=== PATIENT | male | born 1950 | race Caucasian/White ===

== ENCOUNTER 2024-08-15 11:19 | Outpatient (CLI) | payer BC, SELFPAY ==
--- NOTE | ~2024-08-15 | CT_ITS ---
EXAMINATION: CT lung screening DATE: 08/15/2024 11:39 INDICATION: Current smoker TECHNIQUE: Computed tomography (CT) of the chest was performed without intravenous contrast. Addition al 3D reconstructions utilizing coronal maximum intensity projection (MIP) were performed. Automated exposure control and iterative reconstruction technique were employed. The dose-length product was 13 1.83 mGy-cm. COMPARISON: None FINDINGS: Emphysema moderate severity in the posterior right upper lobe and otherwise mild. Unchanged 2 mm nodu les in the left upper lobe and left lower lobe. No new or enlarging pulmonary nodules identified. No pneumonia, pulmonary edema or pleural effusion. Heart size is normal. Atherosclerotic coronary artery calcification. No pericardial effusion. Thoracic aorta is normal in caliber. No pathologically enlar ged thoracic lymphadenopathy. Visualized upper abdomen is unremarkable. There are bridging osteophyte s at multiple levels throughout the thoracic and lower cervical spine consistent with diffuse idiopat hic skeletal hyperostosis (DISH). IMPRESSION: 1. Lung-RADS category 2: Benign appearance or behavior. Continue annual screening with noncontrast lo w-dose chest CT in 12 months. Reviewed, dictated and finalized at location B. IMPRESSION: 1. Lung-RADS category 2: Benign appearance or behavior. Continue annual screeni ng with noncontrast low-dose chest CT in 12 months.
== END 2024-08-15 11:20 | disposition home or self-care (01) ==
LOC: MICIMG 11:20
PROVIDERS: PCP Physician Assistant; Visit Provider Physician Assistant
DX: Z12.2 Encounter for screening for malignant neoplasm of respiratory organs (principal); Z87.891 Personal history of nicotine dependence
CPT/HCPCS: 71271

== ENCOUNTER 2024-09-14 17:10 | Emergency (ER) | payer BC, SELFPAY ==
[2024-09-14] VITALS (7 sets, daily range): BP systolic 176–203; BP diastolic 95–107; PULSE 70–72; RESP 24–40; TEMP 36.5–37.1; O2SAT 94–95
--- NOTE | 2024-09-14 17:30 | ECG_ITS ---
Test Date: 2024-09-14 17:33:39 Measurements Intervals [place] Rate: 73 P: 107 [place]: 139 QRS: 69 QRSD: 86 T: 24 QT: 393 QTc: 435 Interpretive Statements SINUS RHYTHM NONSPECIFIC T-WAVE ABNORMALITY Abnormal ECG Electronically Signed On 09-16-2024 10:35:32 CDT by Reggie Musa M.D.
[2024-09-14] MEDS: IPRATROPIUM 0.5 MG/ALBUTEROL SULFATE 2.5 MG AMPUL.NEB 3 ML INHALATION (17:35)
--- NOTE | 2024-09-14 17:55 | ED.SOB ---
HPI - SOB/Dyspnea General Chief Complaint: Dizziness Stated Complaint: SOB,tightness in center/left side chest/back Time Seen by Provider: 09/14/24 17:30 Source: patient Mode of arrival: ambulatory Limitations: no limitations History of Present Illness HPI Narrative: 73-year-old male with no significant medical history presents today with complaint of dyspnea that started this morning. Patient went up stairs this evening and became dizzy. Dyspnea significantly worse. Patient arrived with abdominal retractions. Patient's abdomen appears distended but patient states this is normal. Denies chest pain. Patient reports 3 days ago he injured his back while picking up a large tarp. Had upper back pain for several days that has resolved but now feels and upper back tightness. patient feels that breathing is restricted and cannot take a deep breath but when he does try to take a deep breath he feels a sharp pain in his back. Patient's blood pressure is elevated today which she states is not normal for him. He smokes 1 pack a cigarettes a day and drinks at least 3 beers a day. All systems reviewed and negative except as noted above. Related Data Home Medications Medication Instructions Recorded Confirmed No Home Medications 09/14/24 09/14/24 Allergies Allergy/AdvReac Type Severity Reaction Status Date / Time No Known Allergies Allergy Verified 09/14/24 17:47 Review of Systems Review of Systems: CONSTITUTIONAL: Denies fever, chills, or sweats. EYES: Denies visual changes, redness, or discharge. ENT: Denies rhinorrhea, congestion, sore throat, or otalgia. CARDIOVASCULAR: Denies chest pain, palpitations, or edema. RESPIRATORY: Denies cough . Reports dyspnea. GASTROINTESTINAL: Denies abdominal pain, nausea, vomiting, or diarrhea. GENITOURINARY: Denies dysuria or hematuria. SKIN: Denies rash or itching. MUSCULOSKELETAL: reports upper back pain. Denies joint pain, or myalgia. NEUROLOGIC: Denies headache, numbness, or weakness. PSYCHIATRIC: Denies anxiety or depression. All other systems reviewed are negative, except as documented in HPI. PMFSH Comments At time of signature, agree with nursing past medical, surgical, social and family history. There is no relevant family history pertinent to the presenting complaint. Exam Narrative: GENERAL: This is a well-nourished, well-developed patient, Patient pale and dusky, mild respiratory distress HEAD: normocephalic, atraumatic. EYES: PERRL. Sclera clear/white. Vision is grossly intact. EARS: External ears normal, auditory canals clear and without drainage, TMs normal without perforation. Hearing grossly intact. NOSE: External nose normal with no obvious nasal discharge, nares without redness, no rhinorrhea. THROAT: Mucous membranes moist, posterior pharynx clear. NECK: Neck supple, non-tender without lymphadenopathy, masses or thyromegaly. CARDIOVASCULAR: Regular rate and rhythm without murmurs, gallops, or rubs. RESPIRATORY: decreased throughout all lung padron. abdominal retractions. Increased respiratory rate. No wheezes, rales, or rhonchi. GASTROINTESTINAL: Abdomen soft, non-tender, nondistended. Bowel sounds are active. No hepato-splenomegaly, or palpable masses. No guarding. SKIN: warm, Dry, intact with no suspicious lesions or rash, good texture and turgor. NEURO: awake, alert, and oriented to person, place and time. There were no obvious focal neurologic abnormalities. EXTREMITIES: No joint tenderness, effusion, or edema noted. Course Course Level of Care: Express Care Visit Vital Signs Vital signs: Vital Signs Temperature 37.1 C 09/14/24 17:44 Pulse Rate 70 09/14/24 17:44 Respiratory Rate 24 H 09/14/24 17:44 Blood Pressure 176/98 H 09/14/24 17:44 Pulse Oximetry 95 09/14/24 17:44 Oxygen Delivery Room Air 09/14/24 17:44 Temperature 37.1 C 09/14/24 17:44 Pulse Rate 70 09/14/24 17:44 Respiratory Rate 24 H 09/14/24
== END 2024-09-14 18:04 | disposition short-term general hospital (02) ==
PROVIDERS: Emergency Provider Nurse Practitioner Family; PCP Physician Assistant
DX: R06.00 Dyspnea, unspecified (principal); I10 Essential (primary) hypertension
CPT/HCPCS: 93005; 99215; G0463

== ENCOUNTER 2025-02-17 13:02 | Outpatient (CLI) | payer BC, SELFPAY ==
--- NOTE | ~2025-02-17 | US_ITS ---
EXAMINATION: US arterial ankle brachial ind DATE: 02/17/2025 14:24 INDICATION: Localized swelling. Right leg feels warmer. Peripheral vascular disease risk factors of p rior smoking and hypertension. TECHNIQUE: Segmental pressures and plethysmographic and Doppler waveforms of the brachial and lower e xtremity arteries were obtained. COMPARISON: None. FINDINGS: Right and left brachial artery pressures of 165 mm Hg and 156 mm Hg, respectively, are concordant (no rmal difference <= 30 mmHg). The right ankle-brachial index (RYAN) is 1.15 (normal >= 0.9-1.0). The right great toe-brachial index (TBI) is 0.67 (normal >= 0.65). Arterial Doppler waveforms demonstrate normal systolic upstrokes at b oth right posterior tibial and dorsalis pedis arteries. The left RYAN is 1.15. The left TBI is 0.44. Arterial Doppler waveforms demonstrate normal systolic up strokes at both left posterior tibial and dorsalis pedis arteries. IMPRESSION: 1. Mild arterial occlusive disease to left lower limb with normal left RYAN but mildly decreased left TBI. 2. Normal right RYAN and TBI. Reviewed, dictated and finalized at location B.
--- NOTE | ~2025-02-17 | US_ITS ---
EXAMINATION: US arterial duplex LE DATE: 02/17/2025 14:24 INDICATION: Localized swelling and peripheral vascular disease in the lower limbs. TECHNIQUE: Multiple grayscale and Doppler ultrasound images of the arteries of the bilateral lower li mbs were obtained. COMPARISON: None FINDINGS: On grayscale imaging there is scattered multifocal atherosclerotic plaque narrows the right lower mcdowell b. This appears most prominent in the mid right superficial femoral artery where there is increase in peak systolic velocity from 75 cm/s in the proximal artery to 160 cm/s at the site of the stenosis w hich appears moderate 50-70% severity on grayscale imaging. There is additional stenosis at the right popliteal artery which also appears of moderate severity on grayscale imaging. Spectral Doppler demo nstrates a systolic upstrokes throughout the arteries of the right lower limb with triphasic waveform s at the right external iliac, common femoral, superficial femoral, popliteal, posterior tibial, marilou shruthi and anterior tibial arteries and biphasic waveform at the right profunda femoral artery. IMPRESSION: 1. Scattered atherosclerotic disease in the arteries of the right lower limb with moderate 50-70% erick nosis on grayscale imaging at the mid right superficial femoral artery and right popliteal artery, th e former with associated doubling of peak systolic velocities but with normal brisk systolic upstroke s throughout including in the more distal arteries. Reviewed, dictated and finalized at location B. IMPRESSION: 1. Scattered atherosclerotic disease in the arteries of the right lower limb wi th moderate 50-70% stenosis on grayscale imaging at the mid right superficial f emoral artery and right popliteal artery, the former with associated doubling o f peak systolic velocities but with normal brisk systolic upstrokes throughout including in the more distal arteries.
--- OUTSIDE RECORDS SUMMARY | 2025-02-17 14:55 | XMS_ITS | Clinical Summary ---
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
--- OUTSIDE RECORDS SUMMARY | 2025-02-17 14:55 | XMS_ITS | Encounter Summary ---
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 Historical Provider Final Res ult documented in this encounter Visit Diagnoses Not on filedocumented in this encounter Additional Health Concerns Infection Onset Date Last Indicated Resolved Time COVID: Suspected 09/14/2024 09/14/2024 09/14/2024 7:41 PM CDT documented as of this encounter Care Teams It Security Consulting Director Relationship Specialty Start Date End Date Gloria Salgado PA [address] [place] [id number] PCP - General Physician Manager Image 09/14/24 documented as of this encounter
--- OUTSIDE RECORDS SUMMARY | 2025-02-17 14:55 | XMS_ITS | Encounter Summary ---
Author Organization [facility] Address [address] [place] [address] Phone Care Team Providers Care Oil Field Roustabout Name Role Phone Gloria Salgado Primary Care Provider [phone] Encounter Details Date Type Department Care Team (Late st Contact Info) Description 09/24/2024 Telephone [facility] Surgery [address] Advanced Medicine 8th [place] [address] [place] [address] Simon Issa MD [address] [facility] [address] [place] [address] Social History Tobacco Use Types Packs/Day Years Used Date Smoking Tobacco: Every Day Cigarettes 1 40.4 Started: 09/15/1984 Smokeless Tobacco: Never [facility] [employer] Answer Date Recorded In the past 12 months has [employer], gas, oil, or water [employer] threatened to shut off services in your home? No 09/16/2024 Social Connection and Isolat ion Panel [NHANES] Answer Date Recorded In a typical week, how many times do you talk on the phone with family, friends, or neighbors? More than three times a week 09/16/2024 How often do you get togethe r with friends or relatives? More than three times a week 09/16/2024 How often do you attend chur ch or latter day services? Never 09/16/2024 Do you belong to any clubs o r organizations such as christian groups, unions, fraternal or athletic groups, or school groups? No 09/16/2024 How often do you attend meet ings of the clubs or organizations you belong to? Never 09/16/2024 Are you , , di vorced, , never , or living with a partner? 09/16/2024 Overall Financial Resource Strain (CARDIA) Answe r Date Recorded How hard is it for you to pa y for the very basics like food, housing, medical care, and heating? Not very hard 09/16/2024 Hunger Vital Sign Answer Date Recorded Within the past 12 months, y ou worried that your food would run out before you got the money to buy more. Never true 09/16/20 24 Within the past 12 months, t he food you bought just didn't last and you didn't have money to get more. Never true 09/16/2024 PRAPARE - Transportation Answer Date Re corded In the past 12 months, has l ack of transportation kept you from medical appointments or from getting medications? No 08/28 In the past 12 months, has l ack of transportation kept you from meetings, work, or from getting things needed for daily living? No 09/16/2024 Housing Stability Vital Sign Answer Garrick e Recorded In the last 12 months, was t here a time when you were not able to pay the mortgage or rent on time? No 09/16/2024 In the past 12 months, how m any times have you moved where you were living? 0 09/16/2024 At any time in the past 12 m [facility], were you homeless or living in a chcf (including now)? No 09/16/2024 Personal Safety Answer Date Recorded Have you ever been in or are you currently in a harmful physical or emotional relationship or is someone making you feel afraid or unsafe? 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
--- OUTSIDE RECORDS SUMMARY | 2025-02-17 14:55 | XMS_ITS | Referral Summary ---
Author Organization [facility] Address [address] [place] [address] Care Team Providers Care Equipment Sales Specialist Name Role Phone Gloria Salgado Primary Care Provider [phone] Encounters Date Type Department Care Team Description 02/11/2025 2:38 PM CDT - 02/11/2025 11:59 PM CDT Hospital Encounter [facility] Vascular Lab [address] [place] [address] Right leg swelling Discharge Disposition: Discharge to home or self care 02/11/2025 10:00 AM CDT - 02/11/2025 11:59 PM CDT Hospital Encounter [facility] MOB [address] DIAG [address] [place] [address] Pulmonary emphysema, unspecified emphysema type (HCC) Discharge Disposition: Discharge to home or self care 02/11/2025 11:00 AM CDT Office Visit [address] [address] Gigi Barnes MD Pulmonary emphysema, unspecified emphysema type (HCC) (Primary Dx); Primary hypertension; Right leg swelling; Nicotine dependence, cigarettes, uncomplicated 02/03/[address] [address] Ho Turk CMA from Last 3 Months Allergies No known active allergies Medications budesonide-form oteroL (SYMBICORT) 160-4.5 mcg/actuation inhaler Inhale 2 puffs 2 (two) times a day Rinse mouth with water after use. Do not swallow. 1 each 4 Active albuterol HFA (ProAir HFA) 90 mcg/actuation inhaler Inhale 2 puffs every 4 (four) hours as needed for wheezing or shortness of breath 8.5 g 5 4 11/05/20 25 Active amLODIPine (NORVASC) 5 mg tablet TAKE 1 TABLET(5 MG) BY MOUTH DAILY 90 tablet 5 Active Active Problems Problem Noted Date Diagnosed Date Right leg swelling 02/11/2025 Hyponatremia 09/24/2024 CAP (community acquired pneumonia) 09/16/2024 Emphysema lung 09/16/2024 Smoking greater than 40 pack years 09/16/2024 Pneumothorax on right 09/14/2024 Throat pain 11/05/2021 Overview (09/24/2024): Added automatically from request for surgery [id number] Atherosclerosis of aorta 08/17/2020 Enlarged thyroid 10/28/2019 ED (erectile dysfunction) 09/05/2016 GERD (gastroesophageal reflux disease) 6 HTN (hypertension) 04/20/2016 Hyperglycemia 04/20/2016 Social History Tobacco Use Types Packs/Day Years Used Date Smoking Tobacco: Former Cigarettes 1 40 1 - 09/14/2024 Smokeless Tobacco: Never Tobacco Cessation:Counseling Given: Not Answered [facility] Utilities Answer Date Recorded In the past 12 months has e [employer], oil, or water [employer] threatened to shut off services in your [...] 09/16/2024 How often do you attend chur or mosque services? Never 09/16/2024 Do you belong to any clubs o r organizations such as religious groups, unions, fraternal or athletic groups, or [...] any time in the past 12 m onths, were you homeless or living in a senior living (including now)? No 09/16/2024 Personal Safety Answer Date Recorded Have you ever been in or are you currently in a harmful physical or emotional relationship or is someone making you feel afraid or unsafe? 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 Gender Identity Not on file Sexual Orientation Not on file Last Filed Vital Signs Vital Sign Reading Time Taken Comments Blood Pressure 122/80 02/11/2025 10:34 AM CDT Pulse 76 02/11/2025 10:34 AM CDT Temperature 35.9 C (96.6 F) 02/11/2025 10:34 AM CDT Respiratory Rate 16 02/11/2025 10:34 AM CDT Oxygen Saturation 98% 02/11/2025 10:34 AM CDT Inhaled Oxygen Concentration - - Weight 88.9 kg (196 lb) 02/11/2025 10:34 AM CDT Height 180.3 cm (5' 11 ) 02/11/2025 10:34 AM CDT Body Mass Index 27.34 02/11/2025 10:34 AM CDT Plan of Treatment Not on file Procedures Procedure Name Priority Date/Time Associated Diagnosis Comments US VEIN DUPLEX LOWER EXTREMITY RIGHT LIMITED Schedule JAYA, Read JAYA (Appt Today, Awaiting Results) 02/11/2025 3:25 PM CDT Right leg swelling XR CHEST PA LATERAL 2 VIEWS Schedule Routine, Read Routine (OP Routine) 02/11/2025 10:18 AM CDT Pulmonary emphysema, unspecified emphysema type (HCC) from Last 3 Months Results * US Vein Duplex Lower Extremity Right Limited, Unilateral (02/11/2025 3:25 PM CDT) Anatomical Region Laterality Modality Vascular Right Ultrasound 02/11/2025 2:54 PM CDT Narrative 02/13/2025 9:43 AM CDT Lower Extremity Venous Report Patient Name: GLENN EMANUEL D : 1950 (74y 2m) Gender: M Study Date: 02/11/2025 02:54:19 PM Activated Sludge Operator: Burke Marr Provider: GIGI BARNES Quality: Adequate Ref Provider: GIGI BARNES PROCEDURES: Vascular Report: A non-invasive vascular imaging study of the right lower extremity veins was performed using B-mode ultrasound, color flow, and spectral Doppler. INDICATIONS: Edema, unspecified, Right leg swelling, and M79.89 Other specified soft tissue disorders. COMPARISONS: No prior exams. FINDINGS: Right: Negative for deep and superficial vein thrombosis in the right lower extremity. Provider Notification: Tranz message sent to Gigi Barnes Mac. CONCLUSIONS: 1. There is no evidence of deep vein thrombosis in the right lower extremity. ATTESTATION: I have reviewed and interpreted the pertinent images and measurements of this study. I attest to the conclusions in the final report that is provided above. Electronically Signed By: Willie Cr MD 02/13/2025 9:18:26 AM CDT Procedure Note Willie Cr MD - 02/13/2025 Lower Extremity Venous Report Patient Name: GLENN EMANUELMarisabel : 1950 (74y 2m) Gender: M Study Date: 02/11/2025 02:54:19 PM Activated Sludge Operator: Burke Marr Provider: GIGI BARNES Quality: Adequate Ref Provider: GIGI BARNES PROCEDURES: Vascular Report: A non-invasive vascular imaging study of the right lowerextremity veins was performed using B-mode ultrasound, color flow, and spectral Doppler. INDICATIONS: Edema, unspecified, Right leg swelling, and M79.89 Other specified softtissue disorders. COMPARISONS: No prior exams. FINDINGS: Right: Negative for deep and superficial vein thrombosis in the rightlower extremity. Provider Notification: Epic message sent to Gigi Barnes. CONCLUSIONS: 1. There is no evidence of deep vein thrombosis in the right lowerextremity. ATTESTATION: I have reviewed and interpreted the pertinent images and measurements ofthis study. I attest to the conclusions in the final report that is provided above. Electronically Signed By: Willie Cr MD 02/13/2025 9:18:26 AM CDT us Gigi Barnes MD IMG US PROCEDURES Mariel l Result * XR Chest Pa Lateral 2 Views (02/11/2025 10:18 AM CDT) Anatomical Region Laterality Modality Body, Chest N/A Computed Radiogr aphy 02/15/2025 7:30 PM CDT Narrative 02/15/2025 7:34 PM CDT EXAM DESCRIPTION: XR CHEST PA LATERAL 2 VIEWS REASON FOR STUDY: F/u from lung collapse x 3 months, no chest complaints TECHNIQUE: 2 radiographic view(s) of the chest. COMPARISON: 09/30/2024 FINDINGS: LUNGS: No focal opacity, pleural effusion, or pneumothorax. HEART/MEDIASTINUM: Cardiac silhouette normal in size. Mediastinal and hilar contours appear normal. LINES/TUBES: None. BONES: There are degenerative changes in the spine. IMPRESSION: No acute cardiopulmonary abnormality. THIS IS AN ELECTRONICALLY VERIFIED FINAL REPORT 02/15/2025 7:34 PM - Electronically signed by Conchis Ocasio M.D. LL: MOY Report ID: [id number] Reading Location: [id number] Procedure Note Conchis Ocasio MD - 02/15/2025 EXAM DESCRIPTION: XR CHEST PA LATERAL 2 VIEWS REASON FOR STUDY: F/u from lung collapse x 3 months, no chest complaints TECHNIQUE: 2 radiographic view(s) of the chest. COMPARISON: 09/30/2024 FINDINGS: LUNGS: No focal opacity, pleural effusion, or pneumothorax. HEART/MEDIASTINUM: Cardiac silhouette normal in size. Mediastinal andhilar contours appear normal. LINES/TUBES: None. BONES: There are degenerative changes in the spine. IMPRESSION: No acute cardiopulmonary abnormality. THIS IS AN ELECTRONICALLY VERIFIED FINAL REPORT 02/15/2025 7:34 PM - Electronically signed by Conchis Ocasio M.D. LL: MOY Report ID: [id number] Reading Location: [id number] Gigi Barnes MD IMG XR PROCEDURES Mariel l Result from Last 3 Months Insurance [facility] FEDERAL MEDICARE [facility] FEDERAL MEDICARE Advance Directives For more information, please contact: [phone] * Full Code (Latest Code Status on File) Date Activated Date Inactivated Comments 09/15/2024 12:23 AM 09/24/2024 5:55 PM Care Teams Equipment Sales Specialist Relationship Specialty Start Date End Date Gloria Salgado PA [address] [place] [id number] PCP - General Physician Case Management Director 09/14/24
--- OUTSIDE RECORDS SUMMARY | 2025-02-17 14:55 | XMS_ITS | Clinical Summary ---
Author Organization [facility] Address [address] [place] [address] Care Team Providers Care Feed In Worker Name Role Phone Gloria Salgado Primary Care Provider [phone] Allergies No known active allergies Medications budesonide-form [...] (09/24/2024): Added automatically from request for surgery [id number] Atherosclerosis of aorta 08/17/2020 Enlarged thyroid 10/28/2019 ED (erectile dysfunction) 09/05/2016 GERD (gastroesophageal reflux disease) 6 HTN (hypertension) 04/20/2016 Hyperglycemia 04/20/2016 Encounters Date Type Department Care Team Description 02/11/2025 2:38 PM CDT - 02/11/2025 11:59 PM CDT Hospital Encounter [facility] [address] [place] [address] Right leg swelling Discharge Disposition: Discharge to home or self care 02/11/2025 11:00 AM CDT Office Visit [facility] [address] [facility] [address] [place] [address] Gigi Barnes MD Pulmonary emphysema, unspecified emphysema type (HCC) (Primary Dx); Primary hypertension; Right leg swelling; Nicotine dependence, cigarettes, uncomplicated 02/11/2025 10:00 AM CDT - 02/11/2025 11:59 PM CDT Hospital Encounter [facility] 1 DIAG IMG [address] [place] [address] Pulmonary emphysema, unspecified emphysema type (HCC) Discharge Disposition: Discharge to home or self care 02/03/2025 Telephone [facility] [address] [address] [place] CMA from Last 3 Months Surgical History Surgery Date Site/Laterality Comments HERNIA REPAIR TONSILLECTOMY as a child CT CHEST TUBE INSERTION LEFT 09/19/2024 N/A LUNG SURGERY 09/20/2024 Right VATS right upper wedge resection and mechanical pleurodesis Medical History Medical History Date Comments Hypertension COPD (chronic obstructive pulmonary disease) (HC C) Emphysema lung (HCC) Atherosclerosis Coronary artery calcification Social History Tobacco Use Types Packs/Day Years Used Date Smoking Tobacco: Former Cigarettes 1 40 1 - 09/14/2024 Smokeless Tobacco: Never Tobacco Cessation:Counseling Given: Not Answered [facility] Utilities Answer Date Recorded In the past 12 months has [employer], [employer], oil, or water [employer] threatened to shut off services in your [...] often do you attend chur ch or jewish services? Never 09/16/2024 Do you belong to any clubs o r organizations such as sikh groups, unions, fraternal or athletic groups, or [...] any time in the past 12 m [facility], were you homeless or living in a senior care (including now)? No 09/16/2024 Personal Safety Answer Date Recorded Have you ever been in or are you currently in a harmful physical or emotional relationship or is someone making you feel afraid or unsafe? Denies 09/15/2024 Sex and Gender Information Value Date Recorded Sex Assigned at Not on file Legal Sex Male 7:24 PM [employer] Gender Identity Not on file Sexual Orientation Not on file Obstetrics History Last Filed Vital Signs Vital Sign Reading [...] 02/11/2025 10:34 AM CDT Plan of Treatment Health Maintenance Due Date Last Done Comments Colon Cancer Screening-Colonoscopy 1950 Depression Screening 1950 Hepatitis C Screening 1950 Hepatitis B Screening 1968 Lung Cancer Screening 2000 Zoster Vaccine (1 of 2) 2000 Well Visit 65+ 2015 Pneumococcal vaccine 65+ (2 of 2 - PPSV23) 08/24/2021 06/29/2021 Covid-19 Vaccine (3 - season) 2024, 02/23/2021 Influenza Vaccine (#1) 2024 09/05/2016 Fall Risk Assessment 09/24/2025 09/24/2024 DTaP/Tdap/Td Vaccine (2 - Td or Tdap) 06/29/203101/2021 Abdominal Aortic Aneurysm (AAA) Screen Completed Procedures Procedure Name Priority Date/Time Associated Diagnosis [...] Gender: M Study Date: 02/11/2025 02:54:19 PM Solar Sales Rep: Burke Marr Provider: GIGI BARNES Quality: Adequate [...] in the right lower extremity. Provider Notification: [employer] message sent to Gigi Barnes. CONCLUSIONS: 1. [...] Gender: M Study Date: 02/11/2025 02:54:19 PM Solar Sales Rep: Burke Marr Provider: GIGI BARNES Quality: Adequate [...] thrombosis in the rightlower extremity. Provider Notification: [employer] message sent to Gigi Barnes. CONCLUSIONS: 1. [...] Electronically signed by Conchis Ocasio M.D. LL: LL Report ID: [id number] Reading Location: [id number] Procedure Note Conchis Ocasio MD - 02/15/2025 [...] Electronically signed by Conchis Ocasio M.D. LL: LL Report ID: [id number] Reading Location: [id number] Gigi Barnes MD IMG XR PROCEDURES Mariel l Result from Last 3 Months Insurance [facility] FEDERAL MEDICARE [facility] FEDERAL Member Subscriber Plan / Payer (Ef fective 2016-Present) Name:Glenn Emanuel Relation to Subscriber:Spouse Name:TAQUERIAROULA Date of :1964 (Home) Address: [address] [place] [address] [place] [address] Payer ID:[id number] (NAIC) Group ID:[id number] Type:[employer] Address: [address] [place] [id number] MEDICARE Advance Directives For more information, please contact: [phone] * Full Code (Latest Code Status on File) Date Activated Date Inactivated Comments 09/15/2024 12:23 AM 09/24/2024 5:55 PM Care Teams Feed In Worker Relationship Specialty Start Date End Date Gloria Salgado PA [address] [place] [address] PCP - General Physician Statistical Developer 09/14/24
== END 2025-02-17 13:03 | disposition home or self-care (01) ==
PROVIDERS: PCP Physician Assistant; Visit Provider Physician Assistant
DX: R22.41 Localized swelling, mass and lump, right lower limb (principal); I73.9 Peripheral vascular disease, unspecified
CPT/HCPCS: 93922; 93926

== ENCOUNTER 2025-09-08 15:17 | Emergency (ER) | payer BC, SELFPAY ==
--- NOTE | ~2025-09-08 | XR_ITS ---
EXAMINATION: XR chest 2V DATE: 09/08/2025 15:50 INDICATION: Chronic cough TECHNIQUE: frontal and lateral views of the chest were obtained. COMPARISON: Chest CT dated 08/15/24 FINDINGS: Focal airspace opacity at the lingula. No pulmonary edema, pleural effusion or pneumothorax. The cardiomediastinal silhouette is normal. Moderate thoracic spondylosis with bridging osteophytes at multiple levels consistent with diffuse idiopathic skeletal hyperostosis (DISH). IMPRESSION: 1. Full airspace opacity in the lingula which could represent atelectasis or pneumonia. Reviewed, dictated and finalized at location A. IMPRESSION: 1. Full airspace opacity in the lingula which could represent atelectasis or pn eumonia.
--- NOTE | 2025-09-08 15:18 | ED_ITS ---
HPI - URI/Sore Throat General Chief Complaint: Upper Respiratory Infection Stated Complaint: Cough Time Seen by Provider: 09/08/25 15:18 Source: patient Mode of arrival: ambulatory Limitations: no limitations History of Present Illness HPI Narrative: Patient is a 74-year-old male who presents with 3 weeks of cough. Reports postnasal drainage, congestion and worsening cough with lying flat. Denies any fever, chills, nausea, vomiting, diarrhea. Has been taking [id number] medication with no relief. Related Data Allergies Allergy/AdvReac Type Severity Reaction Status Date / Time No Known Allergies Allergy Verified 09/08/25 15:19 Review of Systems Review of Systems: All systems reviewed & are unremarkable except as noted in HPI and below Constitutional: Constitutional: Denies chills, Denies fatigue, Denies fever(s), Denies headache(s), Denies malaise and Denies weakness Eyes: Eyes: Denies blurry vision, Denies itchy eyes and Denies loss of vision ENT: Denies otalgia, Denies headache(s), Reports nasal congestion, Denies sinus pain and Denies sore throat Cardiovascular: Cardiovascular: Denies chest pain, Denies irregular heart rhythm and Denies dyspnea Respiratory: Respiratory: Reports cough and Denies dyspnea Gastrointestinal: Gastrointestinal: Denies abdominal pain, Denies diarrhea, Denies nausea and Denies vomiting Musculoskeletal: Musculoskeletal: Denies back pain, Denies myalgias and Denies arthralgias Integumentary/Breasts: Skin/Breast: Denies pruritus and Denies rash Neurologic: Denies headache(s), Denies loss of vision and Denies weakness Psychiatric: Psychiatric: Reports no additional psychiatric complaints Endocrine: Endocrine: Denies fatigue Allergic/Immunologic: Allergic/Immunologic: Denies itchy eyes PMFSH Comments At time of signature, agree with nursing past medical, surgical, social and family history. There is no relevant family history pertinent to the presenting complaint. Exam Const: General: cooperative, healthy appearing, comfortable, no acute distress and well nourished Nutritional Appearance: well nourished Orientation/consciousness: patient oriented x3 Limitations: no limitations HENMT: Head: normal to inspection, normocephalic and atraumatic Ears: hearing grossly normal bilaterally, external ears normal, TM's normal bilaterally, EAC's normal and no periauricular adenopathy Face/Nose/Sinus: Normal external nose present, Abnormal mucous membranes and turbinates present erythematous bilateral and diffuse, normal facial exam, sinuses nontender and face symmetric Face and sinus: normal facial exam, sinuses nontender and face symmetric Mouth: Yes Normal oral and palatal mucosa present, Yes lip normal, Yes tongue normal, Yes Normal salivary glands and ducts present, Yes oropharynx normal and Yes moist mucous membranes Teeth and gingiva: dentition normal Throat: posterior oropharynx normal, tonsils normal and uvula midline Eyes: General: appearance normal, both eyes and all related structures Alignment and Position: alignment normal and position normal Periorbital: periorbital findings normal Eyelids: eyelids normal Pupils: Equal, round and reactive pupils present Neck: Neck: normal visual inspection, full ROM, no lymphadenopathy and supple Chest: Chest palpation & inspection: normal inspection of the chest and normal palpation of entire chest wall Resp: Effort & Inspection: normal respiratory effort and able to speak in complete sentences Auscultation: no crackles, no rales, no rhonchi, no wheezes and diminished lung sounds on the left in the upper lung padron Cardio: Rate: regular rate Rhythm: regular rhythm Heart sounds: S1 normal heart sound present and S2 normal heart sound present GI: Inspection: normal to inspection Skin: General skin exam: normal color and no rashes or lesions noted Neuro: General: patient oriented x3 and moves all extremities Cranial nerves: Yes Equal, round and reactive pupils present Speech: normal speech Gait exam (Neuro): Normal gait present Extrem: General: normal to inspection, full ROM and no edema Psych: Appearance: grossly normal and well kempt Mental Status: mental status grossly normal Speech and movement: Normal speech and movement present Affect: normal affect Attitude: cooperative Thought process: Normal thought process present Course Course Emergency Course: Discharge instructions reviewed with patient, as well as provided in writing per nursing staff. The instructions also include specific and strict return/GO TO THE ER as well as f/u information. All questions have been answered, and the patient deny any further questions with discharge and discharge plan. Portions of this record may have been created with voice recognition software Level of Care: Express Care Visit Vital Signs Vital signs: Vital Signs Temperature 37.1 C 09/08/25 15:30 Pulse Rate 61 09/08/25 15:30 Respiratory Rate 16 09/08/25 15:30 Blood Pressure 162/89 H 09/08/25 15:30 Pulse Oximetry 95 09/08/25 15:30 Oxygen Delivery Room Air 09/08/25 15:30 Temperature 37.1 C 09/08/25 15:30 Pulse Rate 61 09/08/25 15:30 Respiratory Rate 16 09/08/25 15:30 Blood Pressure 162/89 H 09/08/25 15:30 Pulse Oximetry 95 09/08/25 15:30 Oxygen Delivery Room Air 09/08/25 15:30 Reviewed MDM - URI/Sore Throat MDM Narrative Medical decision making narrative: Exam and x-ray consistent with pneumonia. Will treat with antibiotics, steroids and albuterol inhaler. Pt well hydrated appearing, in no respiratory distress, hemodynamically stable. Recommend supportive care. The patient is stable at time of discharge the clinical impression was discussed and the patient was given the opportunity to ask questions, which were addressed as completely as possible given the information available at present. Anticipatory guidance and return to care precautions were discussed and the importance of primary care follow-up was stressed and encouraged. The patient voiced understanding of the plan, indications to return, and the need for follow-up. Exam findings show no acute concerns or changes Patient is appropriate for outpatient treatment and follow-up. Differential diagnosis considered: Pneumonia, Olvera virus, strep pharyngitis, allergic rhinitis, upper respiratory tract infection, sinusitis, rhinosinusitis, nasopharyngitis. viral pharyngitis, otitis media, otitis externa, otitis effusion, foreign body, cerumen impaction, viral syndrome, and influenza.? Medical Records Attestation: I reviewed the patient's medical records. Imaging Data Radiologist's impression: EXAMINATION: XR chest 2V DATE: 09/08/2025 15:50 INDICATION: Chronic cough TECHNIQUE: frontal and lateral views of the chest were obtained. COMPARISON: Chest CT dated 08/15/24 FINDINGS: Focal airspace opacity at the lingula. No pulmonary edema, pleural effusion or pneumothorax. The cardiomediastinal silhouette is normal. Moderate thoracic spondylosis with bridging osteophytes at multiple levels consistent with diffuse idiopathic skeletal hyperostosis (DISH). IMPRESSION: 1. Full airspace opacity in the lingula which could represent atelectasis or pneumonia. Reviewed, dictated and finalized at location A. Discharge Plan Discharge Clinical Impression: Pneumonia Qualifiers: Pneumonia type: due to unspecified organism Laterality: left Lung location: upper lobe of lung Qualified Code(s): J18.9 - Pneumonia, unspecified organism Patient Disposition: Home Condition: Stable Instructions: Antibiotic Form Additional Instructions: Pneumonia is a lung infection that can cause a fever, cough, and trouble breathing. Please continue all antibiotics as directed until complete. Nutrition is important - eat small frequent meals. Get lots of rest and drink fluids. Take antibiotic as prescribed. Take steroids in the morning with food. Use Tessalon Perles as needed for cough. Use inhaler with spacer as needed. Other symptomatic treatments include: -Alternate Tylenol and Motrin per package directions for fever or pain: Tylenol 650-1000mg by mouth every 4-6 hours. Do not exceed 4000mg in 24 hours. Advil (Ibuprofen) 600 mg by mouth every 6 hours. Do not exceed 2400mg in 24 hours. 8 AM: Tylenol 11 AM: Ibuprofen 2 PM: Tylenol 5 PM: Ibuprofen 8 PM: Tylenol 11 PM: Ibuprofen 2 AM: Tylenol 5 AM: Ibuprofen -Antihistamine medication such as Benadryl at night and Zyrtec/Claritin/Bree during the day can help improve symptoms. -Use Flonase twice a day for 5 days then daily to help reduce the inflammation and dry up your sinuses. -You can also use Sudafed or Mucinex. Be sure to drink plenty of water with these medications at least 8 ounces with every dose and it is important to drink 8 to 10 glasses of water per day. Water is a natural decongestant -Eat and drink things that are easy to swallow, like tea or soup, or popsicles. -Oral rinses such as: Salt water gargles and/or may use topical anesthetic (eg. Chloraseptic spray) or lozenges to relieve dryness or throat pain). -Frequent hand washing or hand solvent plant treater is one of the best ways to prevent spread of infection. -Using a vaporizer or humidifier at night will also help thin secretions and help with coughing up phlegm. Call your Primary Care Doctor and make a follow-up appointment in 3 days. If your cough worsens, you develop a fever greater than 103, you develop shaking chills, a fast heartbeat, trouble breathing and/or feel you are are breathing much faster than usual, call your Primary Care Doctor or go to the ER. Make sure you wash your hands frequently. Your blood pressure was elevated above 120/80 today at Urgent Care. This puts you above the threshold for follow up visit with a primary care provider. High blood pressure does not usually cause any symptoms, however it may lead to kidney failure, stroke, heart disease just to name a few if untreated . Many people are anxious when seeing a provider or nurse. As a result, you are not diagnosed with hypertension at this time unless your blood pressure is persistently high at two office visits at least one week apart. Some things that can help lower blood pressure are lifestyle modifications, such as light exercise, decreased salt in diet, and weight loss. It is important to follow up with a PCP about this within 1 week. Patient Language: Canadian Prescriptions: New prednisone 20 mg tablet 40 mg PO DAILY 5 Days Qty: 10 0RF doxycycline monohydrate 100 mg tablet 100 mg PO BID 5 Days Qty: 10 0RF benzonatate 100 mg capsule 100 mg PO BID PRN (Reason: cough) Qty: 14 0RF albuterol sulfate 90 mcg/actuation HFA aerosol inhaler 2 puff inhalation QID PRN (Reason: shortness of breath or wheezing) Qty: 6.7 0RF fluticasone propionate [Flonase Allergy Relief] 50 mcg/actuation spray,suspension 1 spray intranasal DAILY Qty: 16 0RF Rx Instructions: administer into each nostril (DME) Aerochamber MV Spacer See Rx Instructions .Route Qty: 1 0RF Rx Instructions: As directed Follow-up/Referrals: Naomi,LORI Castro [Primary Care Provider, Unknown] - 3 Days Time of Disposition: 16:29
[2025-09-08 15:30] VITALS: BP 162/89; PULSE 61; RESP 16; TEMP 37.1; O2SAT 95
== END 2025-09-08 16:35 | disposition home or self-care (01) ==
PROVIDERS: Emergency Provider Nurse Practitioner Family; PCP Physician Assistant
DX: J18.9 Pneumonia, unspecified organism (principal)
CPT/HCPCS: 71046; 99213; G0463

== ENCOUNTER 2025-09-26 09:09 | Outpatient (CLI) | payer BC, SELFPAY ==
--- NOTE | ~2025-09-26 | CT_ITS ---
EXAMINATION:CT lung screening DATE: 09/26/2025 09:24 INDICATION: Personal history of nicotine dependence. TECHNIQUE: Computed tomography (CT) of the chest was performed without intravenous contrast. Automated exposure control and iterative reconstruction technique were employed. The dose-length product (DLP) was 151.12 mGy-cm. COMPARISON: Chest CT 08/15/2024 FINDINGS: There is mild emphysema. There is a 2 mm nodule in left upper lobe. There is a 2 mm nodule in left lower lobe. There are changes of wedge resection in right lung upper lobe. There is mild atelectasis bilaterally, worst in the lingula. No pleural effusion. The heart size is normal. There are coronary artery calcifications. No pericardial effusion. There is mild bilateral gynecomastia. There are bridging endplate osteophytes at multiple levels in the spine, consistent with diffuse idiopathic skeletal hyperostosis (DISH). There is mild chronic anterior wedging of multiple vertebral bodies. IMPRESSION: 1. Lung-RADS category 2: Benign appearance or behavior. Continue annual screening with noncontrast low-dose chest CT in 12 months. Reviewed, dictated and finalized at location E. IMPRESSION: 1. Lung-RADS category 2: Benign appearance or behavior. Continue annual screeni ng with noncontrast low-dose chest CT in 12 months.
== END 2025-09-26 09:10 | disposition home or self-care (01) ==
LOC: MICIMG 09:09
PROVIDERS: PCP Physician Assistant; Visit Provider Physician Assistant
DX: Z12.2 Encounter for screening for malignant neoplasm of respiratory organs (principal); Z87.891 Personal history of nicotine dependence
CPT/HCPCS: 71271